=== PATIENT | female | born 1985 | race Caucasian/White ===

== ENCOUNTER 2016-07-12 07:37 | Day surgery (SDC) | payer OTHER ==
[~2016-07-12] VITALS: Ht 165.1 cm; Wt 102.5 kg
[~2016-07-12 07:37] MED LIST: ACET500T33 PO; CEFAZOLIN 2GM PREMIX 50 ML IV PRN; FENTANYL PF 100 MCG/2 ML VIAL. IV PRN; HYDR-971 PO; HYDROMORPHONE 2 MG/ML VIAL. IV PRN; IBUP-1060 PO; IV RINGERS,LACTATED 1000ML 1,000 ML IV SCH; LIDOCAINE 1% 1 ML SYRINGE. ID PRN; MORPHINE SULFATE 2 MG/ML DISP.SYRIN. IV PRN; ONDANSETRON PF 4 MG/2 ML VIAL. IV PRN; PROCHLORPERAZINE 10 MG/2 ML VIAL. IV PRN
[2016-07-12] MEDS ORDERED: BUPIVAC MPF-EPI 0.5%-1:200000 30 ML VIAL. ONE (07:51)
[2016-07-12] MEDS ORDERED: SEVOFLURANE 61 TO 120 MINUTES. IH ONE (08:45)
[2016-07-12] MEDS ORDERED: MIDAZOLAM HCL 2 MG/2 ML VIAL. ONE (08:46)
[2016-07-12] MEDS ORDERED: KETOROLAC 60 MG/2 ML SYRINGE FOR OR. ONE (08:46)
[2016-07-12] MEDS ORDERED: FENTANYL PF 100 MCG/2 ML VIAL. ONE ×2 (08:46→10:34)
[2016-07-12] MEDS ORDERED: DEXAMETHASONE SOD PHOS 20 MG/5 ML VIAL. ONE (08:46)
[2016-07-12] MEDS ORDERED: ONDANSETRON PF 4 MG/2 ML VIAL. ONE (08:46)
[2016-07-12] MEDS ORDERED: GLYCOPYRROLATE 1 MG/5 ML VIAL. ONE (08:46)
[2016-07-12] MEDS ORDERED: LIDOCAINE 2% 100 MG/5 ML DISP.SYRIN. ONE (08:46)
[2016-07-12] MEDS ORDERED: ROCURONIUM 50 MG/5 ML VIAL. ONE (08:46)
[2016-07-12] MEDS ORDERED: PROPOFOL 20 ML IV ONE (08:46)
[2016-07-12] MEDS ORDERED: OXYC-323 PO (10:00)
[2016-07-12] MEDS ORDERED: ONDA4TAB7 PO (10:00)
[2016-07-12 10:30] LABS: NEG OBC UR NEG; POS OBC UR POS
[2016-07-12] MEDS: FENTANYL PF 100 MCG/2 ML VIAL. IV PRN ×2 (11:40→11:56)
[2016-07-12] MEDS ORDERED: OXYCODONE/APAP 5/325 TABLET. PO ONE (11:45)
[2016-07-12 12:45] VITALS: BP 114/62
--- NOTE | 2016-07-12 22:44 | OP ---
DATE OF SURGERY: 07/12/2016 PREOPERATIVE DIAGNOSES: 1. Umbilical hernia. 2. Epigastric hernia. POSTOPERATIVE DIAGNOSES: 1. Umbilical hernia. 2. Epigastric hernia. PROCEDURES: 1. Primary repair of epigastric hernia. 2. Repair of umbilical hernia with mesh. SURGEON: Dr. Ayaz Glover. ANESTHESIA: General. ESTIMATED BLOOD LOSS: 25 mL. IV FLUIDS: 1000 mL. INDICATIONS: This is a 30-year-old female, who presented with symptomatic umbilical hernia. CT scan demonstrated both an umbilical as well as an epigastric hernia. The epigastric hernia on CT scan was 4 mm located 2 cm above the umbilicus. FINDINGS: She did have an epigastric hernia that measured approximately 4 mm. This was closed with a bisisa-we-iuzap 0 Prolene suture and then her umbilical defect was about 1 cm and it was repaired with a 4.3 cm Bard Ventralex patch placed beneath the level of the fascia in the preperitoneal space. DESCRIPTION OF PROCEDURE: After informed consent was obtained, the patient was taken to the operating room and placed in supine position. After adequate induction of general anesthesia, she was prepped and draped in usual sterile fashion. A periumbilical skin incision was made with a scalpel and extended through subcutaneous tissue with cautery. The dermis of the umbilicus was excised from the umbilical hernia sac with cautery. The patient had a large amount of preperitoneal fat extending through her umbilical defect. This was amputated and sent off as hernia contents. The umbilical defect was 1 cm. The preperitoneal space was developed and gloved finger was inserted through the umbilical defect to feel the epigastric tissue. Otherwise, no definitive hernia identified. The CT scan was then brought up on to the procedure, monitor and I have reviewed these images. The patient had a 4 mm hernia defect located cephalad to the umbilical hernia defect. With this knowledge, the subcutaneous tissue was cleared off the fascia cephalad to the umbilical defect and in doing so an epigastric 4 mm defect was encountered. This was closed with a tqjbmq-tr-lqrss 0 Prolene suture, thereby primarily closing her ventral hernia. The umbilical hernia defect was then repaired by placing a 4.3 cm Bard Ventralex patch beneath the level of the fascia in the preperitoneal space. The umbilical hernia defect was sutured to the abdominal wall with U sutures using 0 Prolene so the knots are buried. Sutures were placed at 3 o'clock, 6 o'clock, 9 o'clock and 12 o'clock positions. The tails of the mesh were then cut off, the fascia was closed over the mesh and then the area was injected with local anesthetic. The dermis of the umbilicus was tacked back to the fascia with a 2-0 Vicryl suture. The wound was closed in layers. The dermal and subdermal layer was closed with a 2-0 Vicryl in a running fashion. Skin was closed with 4-0 Monocryl in subcuticular fashion. Sterile dressings were placed, which included Mastisol, Steri-Strips, tonsil ball and a Tegaderm. She tolerated the procedure well. There were no apparent complications. She was transferred in stable condition to the recovery room. AYAZ GLOVER MD DR: WILLIAM/ira JOB#: [id number] / [id number] MARSHALL Sepulveda MD, SARAH PA
--- NOTE | 2016-07-13 00:05 | ACF ---
Admission Forms Criteria AMBULATORY SURGERY EXCEPTION CRITERIA Ambulatory Surgery Exception Criteria ( Place 'X' for any and all applicable criteria): Surgery or procedure performed on ambulatory basis may require inpatient stay for[A] ANY ONE of the following(1)(2)(3)(4)(5)(6)(7)(8)(9): [] I. A preoperative situation, condition, or finding that warrants inpatient stay as indicated by ANY ONE of the following: [] a) Inpatient care needed because of severity of a disease or condition rather than the surgery (eg, severe cardiac or respiratory disease, severe infection) (15) (16 ) (17) (18) [] b) Emergent procedure (eg, angioplasty for acute ischemia)(19) [] c) Complex surgical approach or situation as indicated by ANY ONE of the following(3): [] i) Open approach needed instead of usual endoscopic, transcatheter, or other less invasive procedure [] ii) Difficult approach because of previous operation [] iii) Airway monitoring required after open neck procedures(20)(21 ) [] iv) Large mass requiring unusually extensive dissection [] v) Additional complicating feature requiring inpatient care (eg , drain management)(22(23): [] d) Major surgery in a pt with high anesthetic risk as indicated by ANY ONE of the following (2)(3)(5)(7)(8): [] i) ASA risk class III or higher (severe systemic disease impairing function) [D] [] ii) Advanced age (eg, older than 85 years)(14)(24) [] iii) Symptomatic heart failure(25) [] iv) Symptomatic asthma or COPD(8)(21) [] v) Morbid obesity with hemodynamic or respiratory problems(20)( 21)(26)(27) [] vi) Obstructive sleep apnea(20)(21) [] vii) Former premature infants who are younger than 60 weeks [] viii) High risk for severe postoperative abnormalities (eg, severe postoperative hypocalcemia after parathyroidectomy for severe hyperparathyroidism)(27)( 28) [] ix) Unstable angina(25) [] e) Drug-related risk requiring inpatient stay as indicated by ANY ONE of the following(5)(10)(14)(32)(33) [] i) Procedure requires discontinuing drugs or other therapy (eg , antiarrhythmic medication, antiseizure medication), which necessitates inpatient observation or treatment.(18)(31) [] ii) Major surgery and high risk drug use as indicated by ANY ONE of the following: [] 1) Active abuse of cocaine or similar drug [] 2) Monoamine oxidase inhibitor use [] 3) Other drug identified as posing risk [] f) Inadequate outpatient care situation as indicated by ANY ONE of the following(5)(10)(14)(32)(33) [] i) Patient lives remote from medical facility and procedure has urgent complication potential, and temporary nearby residence cannot be arranged [] ii) Patient will have postprocedure incapacitation and inadequate assistance at home, or alternative level of care cannot be arranged. [] iii) Patient will have long general anesthesia or procedure side effect resolution time, and competent person to stay with patient on first postoperative night at home or alternative level of care cannot be arranged. [] iv) Other inadequate outpatient situation that cannot be handled by other means [] II. A perioperative event, condition, or finding that warrants inpatient stay as indicated by ANY ONE of the following (1)(2)(3): [] a) Inadequate physiologic recovery: cardiovascular, respiratory, or hemodynamic status not normal or near preoperative baseline(18) [] b) Hemodynamic instability [] c) Patient not alert with near normal or baseline mental status [] d) Temperature not normal or as expected and not appropriate for outpatient treatment of condition [] e) Ambulatory or appropriate activity level status not yet achieved post procedure [E](34)(35)(36) [] f) Operative site not appropriate (eg, unexpected or excessive drainage or bleeding) [] g) Postoperative effects not resolved or adequately managed (eg, significant pain or vomiting not appropriate for outpatient or next level of care)(10)(12) [] h) Complicating features requiring inpatient care as indicated by ANY ONE of the following(37): [] i) Severe complications of procedure (eg, bowel injury, airway compromise, vascular injury,severe hemorrhage) [] ii) Extensive (eg, dissection far beyond usual scope of procedure ) or prolonged (eg, 120 minutes beyond usual) surgery needed requiring inpatient postoperative care [] iii) Conversion to an open or complex procedure that requires inpatient care (eg, open vs laparoscopic cholecystectomy, abdominal vs vaginal hysterectomy)(38) [] iv) Comorbid condition or test result identified during or post procedure that requires inpatient care (7) [] v) Malignant hyperthermia(30) [] vi) Other complicating feature requiring inpatient care(22)(23) Inpatient stay may be needed until ALL of the following are present (1)(2)(3)(4) (5)(6)(10)(14)(33)(40): []a) Physiologic recovery: cardiovascular, respiratory, and hemodynamic status normal or near preoperative baseline []b) Hemodynamic stability []c) Patient alert, with near normal or baseline mental status []d) Temperature appropriate: patient afebrile or temperature appropriate for outpt treatment of condition []e) Activity level appropriate: ambulatory or appropriate activity level post procedure []f) Operative site appropriate as indicated by ALL of the following: []i) Site dry or with expected drainage []ii) Any blood noted is as expected for procedure. []g) Postoperative effects resolved or managed as indicated by ALL of the following: []i) Pain management appropriate for outpatient (or next level of) care(10) []ii) Minimal nausea and vomiting: if present, successfully treated with oral medication(12) []iii) Headache, dizziness, or drowsiness (if present) are mild. []h) Voiding status acceptable as indicated by ANY ONE of the following: []i) Voiding spontaneously []ii) No voiding but instructions given for follow-up in 6 to 8 hours []iii) Urinary catheter in place, and instructions given for follow-up []i) Complicating features requiring inpatient care manageable at a lower level of care(37) []j) Comorbid conditions manageable at a lower level of care(37) The original [facility] content created by [employer] has been revised. The portions of the content which have been revised are identified through the use of italic text or in bold, and [facility] has neither reviewed nor approved the modified material. All other unmodified content is copyright [facility]. Please see references footnoted in the original [facility] edition 2016 Admission Criteria Met?: No (she was not admitted) YANG LEY Jul 13, 2016 00:05 AYAZ GLOVER MD Jul 13, 2016 18:34
--- NOTE | 2016-07-13 14:27 | PATHOLOGY ---
PATHOLOGY REPORT * * * * * * * * FINAL DIAGNOSIS: Segment of fibromembranous and fibroadipose tissue, umbilical hernia repair: - Hernia sac. (JPM:; d/t: 07/13/16) REPORT ELECTRONICALLY SIGNED BY: Yosi Cunningham M.D. DATE/TIME: 07/13/2016 14:27 * * * * * * * * GROSS PATHOLOGY: Received in formalin labeled "Dorie Ch, umbilical hernia sac," is a piece of fibroadipose tissue measuring 2.5 x 3.5 x 1.9 cm. No nodules or lesions are identified. [employer] tissue is submitted in cassette A1. (KAH; 07/12/2016) INITIAL CPT CODE(S): A; 83054 Professional services performed [place] [address] Technical services performed by [facility] at [address] [place] [address] [address], [place] [address]. SPECIMEN(S) RECEIVED: A.Umbilical hernia sac CLINICAL HISTORY: Umbilical hernia without obstruction, ventral hernia with obstruction PATIENT: DORIE CH /AGE: 610/02/1985 (Age: 30) PATIENT #: [id number] ALT CASE #: SPECIMEN COLLECTION DATE: 07/12/2016 SPECIMEN RECEIVED DATE: 07/12/2016 [facility] - [address] [place] [address] - PHONE: [phone] * * * END OF REPORT * * *
== END 2016-07-12 12:55 | disposition home or self-care (01) ==
LOC: SURG 07:37
PROVIDERS: ATTEND Surgery
DX: K42.9 Umbilical hernia without obstruction or gangrene (principal); K43.6 Other and unspecified ventral hernia with obstruction, without gangrene; Z90.49 Acquired absence of other specified parts of digestive tract; E66.9 Obesity, unspecified; F41.9 Anxiety disorder, unspecified; Z87.891 Personal history of nicotine dependence
CPT/HCPCS: 49585; 81025; A4215; J0690; J0780; J1100; J1885; J2250; J2405; J2704; J3010; J3490; J7120; 88302